=== PATIENT | male | born 1965 | race Caucasian/White ===

== ENCOUNTER 2025-08-03 17:00 | Inpatient (IN) | payer OTHER ==
[~2025-08-03] VITALS: Ht 177.8 cm; Wt 77.4 kg
[2025-08-03 17:04] VITALS: O2SAT 100
[2025-08-03] MEDS: SODIUM CHLORIDE 0.9% 1,000 ML IV ONE ×2 (17:32→17:53)
[2025-08-03] MEDS: DILTIAZEM HCL 5MG/ML 5ML VIAL IV ONE ×2 (17:34→19:28)
[2025-08-03 18:12] LABS: HEMATOCRIT. 41.3 % (42.0-52.0); HEMOGLOBIN. 13.9 g/dL (14.0-18.0); MEAN PLATELET VOLUME 9.6 fl (7.4-10.4); PLATELET 100 x1000/uL (130-400); RED BLOOD CELL COUNT 4.04 mill/uL (4.7-6.1); RED CELL DISTRIBUTION WIDTH 15.1 % (11.6-14.6)
[2025-08-03 18:27] LABS: LYMPHOCYTES % MANUAL 7.0 % (20.0-50.0); MONOCYTES % MANUAL 5.0 % (2.0-8.0); NEUTROPHILS % MANUAL 88.0 % (45.0-75.0); PLATELET ESTIMATE DECREASED
[2025-08-03 18:28] LABS: CREATININE 1.3 mg/dL (0.6-1.3); UREA NITROGEN BLOOD 15 mg/dL (9-23)
[2025-08-03 18:30] LABS: ASPARTATE AMINOTRANSFERASE 117 IU/L (<34); BILIRUBIN DIRECT 2.3 mg/dL (<=3.0)
[2025-08-03 18:31] LABS: BILIRUBIN TOTAL 4.6 mg/dL (0.1-1.0); PROTEIN TOTAL 6.0 g/dL (6.0-8.3)
[2025-08-03 18:44] LABS: TROPONIN I HIGH SENSITIVITY 76 ng/L (3.0-53)
[2025-08-03 22:30] VITALS: BP 139/76; PULSE 82; RESP 18; TEMP 36.6404
[2025-08-03] MEDS ORDERED: ONDANSETRON HCL 4MG/2ML INJ IV PRN (22:45)
[2025-08-03] MEDS ORDERED: CLONIDINE 0.1MG TABLET PO PRN (22:45)
[2025-08-03] MEDS ORDERED: MAGNESIUM/ALUMINUM HYDROXIDE/SIMETHICONE 30ML UDC PO PRN (22:45)
[2025-08-03] MEDS ORDERED: DOCUSATE SODIUM 100MG CAPSULE PO PRN (22:45)
[2025-08-03 23:07] LABS: *AMPHETAMINES SCREEN URINE NEGATIVE (NEGATIVE); *BARBITURATES SCREEN URINE NEGATIVE (NEGATIVE); *BENZODIAZEPINES SCREEN URINE NEGATIVE (NEGATIVE)
[2025-08-03 23:08] LABS: *COCAINE SCREEN URINE NEGATIVE (NEGATIVE); CANNABINOID URINE SCREEN NEGATIVE (NEGATIVE); ECSTASY MDMA SCREEN URINE NEGATIVE (NEGATIVE); METHADONE URINE SCREEN NEGATIVE (NEGATIVE); OPIATES URINE SCREEN NEGATIVE (NEGATIVE); PHENCYCLIDINE URINE SCREEN NEGATIVE (NEGATIVE)
[2025-08-03] MEDS ORDERED: LORAZEPAM 2MG/ML UD SYRINGE IV PRN ×2 (23:15)
[2025-08-03] MEDS: THIAMINE HCL 100 MG/1 ML 2ML VIAL IM SCH (23:59)
[2025-08-03] MEDS: MULTIVITAMINS,THER W-MINERALS TABLET PO SCH (23:59)
[2025-08-03] MEDS: FOLIC ACID 1MG TABLET PO SCH (23:59)
[2025-08-03] MEDS: APIXABAN 5 MG TABLET PO SCH (23:59)
[2025-08-04] VITALS: BP 120/72; PULSE 80; RESP 21; TEMP 36.4; O2SAT 99
[2025-08-04] MEDS ORDERED: METF-414 MT (00:22)
[2025-08-04] MEDS ORDERED: ATOR40TA70 MT (00:22)
[2025-08-04] MEDS ORDERED: GABA-290 MT (00:22)
[2025-08-04] MEDS ORDERED: ATEN50TA PO (00:22)
[2025-08-04] MEDS ORDERED: DEXTROSE 50% WATER 50ML SYRINGE IV PRN (01:15)
[2025-08-04 04:00] VITALS: BP 123/72; PULSE 79; RESP 20; TEMP 36.3; O2SAT 100
[2025-08-04] MEDS: INSULIN LISPRO 100 UNITS/ML SUBCUT SCH (06:16)
[2025-08-04] MEDS: BLOOD SUGAR DIAGNOSTIC STRIP TEST SCH (06:48)
[2025-08-04 08:00] VITALS: BP 157/82; PULSE 82; RESP 18; TEMP 36.4; O2SAT 100
[2025-08-04] MEDS: PANTOPRAZOLE SODIUM 40 MG/VIAL IV SCH (09:34)
[2025-08-04] MEDS: METOPROLOL TARTRATE 25MG TABLET PO SCH (09:35)
[2025-08-04 12:00] VITALS: BP 148/82; PULSE 86; RESP 16; TEMP 36.7; O2SAT 98
[2025-08-04 12:48] LABS: BASOPHILS % 0.9 % (0.0-2.0); EOSINOPHILS % 0.9 % (0.0-5.0); HEMATOCRIT. 40.5 % (42.0-52.0); HEMOGLOBIN. 13.7 g/dL (14.0-18.0); INR 1.2; LYMPHOCYTES % 13.7 % (20.0-50.0); MEAN PLATELET VOLUME 9.9 fl (7.4-10.4); MONOCYTES % 7.8 % (2.0-8.0); NEUTROPHILS % 76.7 % (40.0-76.0); PLATELET 91 x1000/uL (130-400); RED BLOOD CELL COUNT 4.00 mill/uL (4.7-6.1); RED CELL DISTRIBUTION WIDTH 14.8 % (11.6-14.6)
[2025-08-04 13:03] LABS: CREATINE KINASE MB FRACTION 4.9 ng/mL (0.5-3.6)
[2025-08-04 13:07] LABS: T4 FREE 1.64 ng/dL (0.89-1.76)
[2025-08-04 13:08] LABS: CREATININE 1.1 mg/dL (0.6-1.3); TRIGLYCERIDE 105 mg/dL (0-150); UREA NITROGEN BLOOD 16 mg/dL (9-23)
[2025-08-04 13:09] LABS: LDL CHOLESTEROL 91 mg/dL (5-100)
[2025-08-04 13:10] LABS: LACTATE DEHYDROGENASE 388 IU/L (120-246)
[2025-08-04 13:11] LABS: VITAMIN B12 SERUM 450 pg/mL (211-911)
[2025-08-04 13:12] LABS: FOLIC ACID (FOLATE) SERUM > 20.00 ng/mL (>5.38)
[2025-08-04 13:33] LABS: TROPONIN I HIGH SENSITIVITY 193 ng/L (3.0-53)
[2025-08-04 13:41] LABS: HEPATITIS A AB IGM NEGATIVE (Negative); HEPATITIS B CORE AB IGM NEGATIVE (Negative)
[2025-08-04 13:42] LABS: HEPATITIS C AB NON REACTIVE (Neg) (Negative)
[2025-08-04 16:00] VITALS: BP 129/70; PULSE 78; RESP 16; TEMP 36.4; O2SAT 99
[2025-08-04 20:00] VITALS: BP 145/81; PULSE 70; RESP 17; TEMP 37; O2SAT 97
[2025-08-04] MEDS: ATORVASTATIN CALCIUM 10MG TABLET PO SCH (21:23)
[2025-08-04] MEDS: LOPERAMIDE 2MG/15ML UDC PO SCH (21:23)
[2025-08-05] VITALS (8 sets, daily range): BP systolic 141–166; BP diastolic 68–92; PULSE 69–99; RESP 16–18; TEMP 35.9–36.4; O2SAT 98–99
[2025-08-05 07:07] LABS: BASOPHILS % 1.2 % (0.0-2.0); EOSINOPHILS % 1.9 % (0.0-5.0); HEMATOCRIT. 38.8 % (42.0-52.0); HEMOGLOBIN. 13.3 g/dL (14.0-18.0); LYMPHOCYTES % 15.1 % (20.0-50.0); MEAN PLATELET VOLUME 10.4 fl (7.4-10.4); MONOCYTES % 8.5 % (2.0-8.0); NEUTROPHILS % 73.3 % (40.0-76.0); PLATELET 85 x1000/uL (130-400); RED BLOOD CELL COUNT 3.85 mill/uL (4.7-6.1); RED CELL DISTRIBUTION WIDTH 14.7 % (11.6-14.6)
[2025-08-05 07:23] LABS: UREA NITROGEN BLOOD 11 mg/dL (9-23)
[2025-08-05 07:25] LABS: ASPARTATE AMINOTRANSFERASE 176 IU/L (<34)
[2025-08-05 07:26] LABS: CREATININE 1.0 mg/dL (0.6-1.3)
[2025-08-05 07:27] LABS: LDL CHOLESTEROL 81 mg/dL (5-100); TRIGLYCERIDE 93 mg/dL (0-150)
[2025-08-05 07:29] LABS: BILIRUBIN TOTAL 1.9 mg/dL (0.1-1.0); PROTEIN TOTAL 5.7 g/dL (6.0-8.3)
[2025-08-05 08:02] LABS: TROPONIN I HIGH SENSITIVITY 98 ng/L (3.0-53)
[2025-08-05] MEDS ORDERED: NALT50TA6 PO (12:14)
[2025-08-05] MEDS: NALTREXONE HCL 50MG TABLET PO SCH (12:30)
[2025-08-05] MEDS: MAGNESIUM 2 G PREMIX 50 ML IV ONE (13:00)
[2025-08-05] MEDS: GABAPENTIN 300MG CAPSULE PO SCH (14:00)
[2025-08-06] VITALS: BP 126/87; PULSE 72; RESP 19; TEMP 36.9; O2SAT 98
[2025-08-06 04:00] VITALS: BP 140/82; PULSE 63; RESP 17; TEMP 36.7; O2SAT 96
[2025-08-06 08:00] VITALS: BP 163/84; PULSE 54; RESP 16; TEMP 36.6; O2SAT 97
[2025-08-06] MEDS: THIAMINE HCL 100MG TABLET PO SCH (08:42)
[2025-08-06] MEDS ORDERED: APIX5TAB MT (09:51)
[2025-08-06 11:30] VITALS: BP 142/88; PULSE 72; RESP 16; TEMP 36.5; O2SAT 99
[2025-08-06 11:38] VITALS: BP 142/88; PULSE 72; RESP 16; TEMP 97.7
[2025-08-07 09:07] LABS: HAPTOGLOBIN <10 mg/dL (32-363)
== END 2025-08-06 12:16 | disposition home or self-care (01) | DRG 281 ==
LOC: ER 17:00 → 5WST 20:10 → EDBEDREQ 20:13 → ENRESERV 20:19
PROVIDERS: ADMIT Hospitalist; ATTEND Hospitalist
DX: I48.91 Unspecified atrial fibrillation (principal); I38 Endocarditis, valve unspecified; I21.A1 Myocardial infarction type 2; I50.32 Chronic diastolic (congestive) heart failure; I11.0 Hypertensive heart disease with heart failure; D50.9 Iron deficiency anemia, unspecified; K70.10 Alcoholic hepatitis without ascites; F10.10 Alcohol abuse, uncomplicated; K76.0 Fatty (change of) liver, not elsewhere classified; D69.6 Thrombocytopenia, unspecified; K40.20 Bilateral inguinal hernia, without obstruction or gangrene, not specified as recurrent; I34.1 Nonrheumatic mitral (valve) prolapse; E11.40 Type 2 diabetes mellitus with diabetic neuropathy, unspecified; E78.5 Hyperlipidemia, unspecified; F32.A Depression, unspecified; F41.9 Anxiety disorder, unspecified; Z79.01 Long term (current) use of anticoagulants; Z79.4 Long term (current) use of insulin; Z79.84 Long term (current) use of oral hypoglycemic drugs; Z79.899 Other long term (current) drug therapy; Z85.238 Personal history of other malignant neoplasm of thymus; Z86.0101 Personal history of adenomatous and serrated colon polyps; Z86.79 Personal history of other diseases of the circulatory system; Z88.8 Allergy status to other drugs, medicaments and biological substances
CPT/HCPCS: 36415; 71045; 71250; 74176; 80048; 80053; 80061; 80076; 80305; 80320; 82140; 82550; 82553; 82607; 82728; 82746; 82962; 83036; 83540; 83550; 83615; 83625; 83735; 83880; 84439; 84443; 84484; 85025; 85044; 86705; 86709; 87340; 93005; 93306; 99285; J1815; J2470; J3411; J3475; J3490; J7030; G0480